=== PATIENT | male | born 1960 | race Caucasian/White ===

== ENCOUNTER → 2016-10-30 | Outpatient (CLI) | payer OTHER ==
[~2016-10-30] MED LIST: ALBUTEROL0.63 MG/3 INH; ALFUZOSIN HCL E10 MG PO; ASPIR 8181 MG PO; BASAGLAR SQ; COMBIVENT0.074 GM/I INH; DICLOFENAC SODI50 MG PO; ELIQUIS5 MG PO; FUROSEMIDE40 MG PO; IMDUR ER TAB 6060 MG PO; JANUVIA100 MG PO; KLOR-CON M2020 MEQ PO; LISINOPRIL10 MG PO; LOPRESSOR100 MG PO; METFORMIN HCL1000 MG PO; NEURONTIN 400400 MG PO; PANTOPRAZOLE SO40 MG PO; PLAVIX 75 MG TA75 MG PO; SIMVASTATIN20 MG PO; SPIRIVA HANDIH18 MCG INH; SYMBICORT 160-1 INHA INH
== END ==
LOC: KOH-I 10:19
DX: M79.672 Pain in left foot (principal); R05 Cough
CPT/HCPCS: 71020; 73630

== ENCOUNTER → 2020-11-07 | Outpatient (CLI) | payer OTHER | LOC: ECHO 10:09 | DX: I35.9 Nonrheumatic aortic valve disorder, unspecified (principal) | CPT/HCPCS: ECHO; 93306 ==

== ENCOUNTER → 2021-05-21 | Outpatient (CLI) | payer OTHER | LOC: NM 08:31 | DX: I20.8 Other forms of angina pectoris (principal); R06.02 Shortness of breath | CPT/HCPCS: 78452; 93017; A9502; J2785 ==

== ENCOUNTER → 2021-06-10 | Outpatient (CLI) | payer OTHER ==
[2021-06-10 13:22] LABS: HEMOGLOBIN 13.6 gm/dl (14.0-17.5); RED BLOOD COUNT 4.49 M/UL (4.20-5.50); WHITE BLOOD COUNT 9.2 K/UL (4.5-11.0)
== END ==
LOC: LAB 11:58
PROVIDERS: Internal Medicine Interventional Cardiology
DX: I25.10 Atherosclerotic heart disease of native coronary artery without angina pectoris (principal); I10 Essential (primary) hypertension; I48.92 Unspecified atrial flutter; E11.9 Type 2 diabetes mellitus without complications; I35.9 Nonrheumatic aortic valve disorder, unspecified; E78.5 Hyperlipidemia, unspecified; R07.9 Chest pain, unspecified; R94.39 Abnormal result of other cardiovascular function study; J20.9 Acute bronchitis, unspecified; R00.2 Palpitations
CPT/HCPCS: 36415; 80048; 85025; 85610; 85730; 93005

== ENCOUNTER → 2021-06-17 | Outpatient (CLI) | payer OTHER ==
[~2021-06-17] MED LIST changes: +FARXIGA5 MG PO
[2021-06-17 07:25] LABS: HEMOGLOBIN 13.1 gm/dl (14.0-17.5); RED BLOOD COUNT 4.45 M/UL (4.20-5.50); WHITE BLOOD COUNT 8.7 K/UL (4.5-11.0)
== END ==
LOC: CATH 06:31
PROVIDERS: Internal Medicine Interventional Cardiology
DX: R07.9 Chest pain, unspecified (principal); R94.39 Abnormal result of other cardiovascular function study; R06.02 Shortness of breath; B99.9 Unspecified infectious disease; I25.118 Atherosclerotic heart disease of native coronary artery with other forms of angina pectoris; E66.01 Morbid (severe) obesity due to excess calories; G47.33 Obstructive sleep apnea (adult) (pediatric); Z20.822 Contact with and (suspected) exposure to COVID-19; I12.9 Hypertensive chronic kidney disease with stage 1 through stage 4 chronic kidney disease, or unspecified chronic kidney disease; E11.22 Type 2 diabetes mellitus with diabetic chronic kidney disease; N18.9 Chronic kidney disease, unspecified; J44.9 Chronic obstructive pulmonary disease, unspecified; E78.5 Hyperlipidemia, unspecified; R60.9 Edema, unspecified; Z53.09 Procedure and treatment not carried out because of other contraindication; Z95.5 Presence of coronary angioplasty implant and graft; Z87.891 Personal history of nicotine dependence
CPT/HCPCS: 36415; 80048; 82962; 85025; 85610; 85730; 93005; J7030; U0002

== ENCOUNTER → 2021-10-02 | Outpatient (CLI) | payer OTHER | LOC: EXRD 12:33 | DX: N17.9 Acute kidney failure, unspecified (principal) | CPT/HCPCS: 76775 ==

== ENCOUNTER → 2021-10-28 | Outpatient (CLI) | payer OTHER ==
[2021-10-28 08:58] LABS: HEMOGLOBIN 13.7 gm/dl (14.0-17.5); RED BLOOD COUNT 4.63 M/UL (4.20-5.50); WHITE BLOOD COUNT 8.1 K/UL (4.5-11.0)
[2021-10-28 09:10] LABS: BUN/CREATININE RATIO 17 (0-10)
== END ==
LOC: LAB 08:22
PROVIDERS: Internal Medicine Interventional Cardiology
DX: R94.39 Abnormal result of other cardiovascular function study (principal); I20.9 Angina pectoris, unspecified; I35.9 Nonrheumatic aortic valve disorder, unspecified; R60.9 Edema, unspecified; R00.2 Palpitations; E11.9 Type 2 diabetes mellitus without complications; E78.5 Hyperlipidemia, unspecified
CPT/HCPCS: 36415; 80048; 85025; 85610; 85730; 93005

== ENCOUNTER → 2021-11-04 | Outpatient (CLI) | payer OTHER | LOC: CATH 06:31 | DX: I25.118 Atherosclerotic heart disease of native coronary artery with other forms of angina pectoris (principal); I12.9 Hypertensive chronic kidney disease with stage 1 through stage 4 chronic kidney disease, or unspecified chronic kidney disease; J42 Unspecified chronic bronchitis; E11.22 Type 2 diabetes mellitus with diabetic chronic kidney disease; E66.01 Morbid (severe) obesity due to excess calories; G47.33 Obstructive sleep apnea (adult) (pediatric); I45.2 Bifascicular block; N18.9 Chronic kidney disease, unspecified; E78.5 Hyperlipidemia, unspecified; Z95.5 Presence of coronary angioplasty implant and graft; Z87.891 Personal history of nicotine dependence; Z88.2 Allergy status to sulfonamides; Z79.02 Long term (current) use of antithrombotics/antiplatelets; Z79.84 Long term (current) use of oral hypoglycemic drugs; Z68.43 Body mass index [BMI] 50.0-59.9, adult | CPT/HCPCS: 82962; 99152; 99153; C1769; C1887; C1894; J1644; J2250; J3010; Q9965; Q9967 ==

== ENCOUNTER → 2022-04-02 | Outpatient (CLI) | payer OTHER | LOC: HEART 5 13:21 | DX: R06.02 Shortness of breath (principal) | CPT/HCPCS: 94060; 94729 ==